=== PATIENT | female | born 1955 | race Hispanic/Latino ===

== ENCOUNTER 2017-08-05 10:44 | Inpatient (IN) | payer MEDICARE ==
[2017-08-05] VITALS (19 sets, daily range): BP systolic 120–164; BP diastolic 63–84
[~2017-08-05] VITALS: Ht 157.5 cm; Wt 78.0 kg
[~2017-08-05 10:44] MED LIST: ACET-2041 PO; AMLO10TA2 PO; ASCO500C6 PO; ASPI-1005 PO; ATOR40TA69 PO; CARV12.511 PO; CLOP75TA14 PO; FERR210T PO; FISH1CAP27 PO; FOLI0.8T22 PO; FURO80TA3 PO; INSNOV SQ; INSU100V12 SQ; IRON PO; ISON300T4 PO; NYST15OI2 TP; OLME40TA8 PO; PANT40TA25 PO; POTA10TA11 PO; PYRI100T2 PO; SUCR500T PO; VITA400C70 PO
[2017-08-05 11:15] LABS: BASOPHILS % (AUTO) 0.4 % (0.0-5.0); EOSINOPHILS % (AUTO) 1.1 % (0.0-8.0); HEMATOCRIT 36.1 % (36-48); LYMPHOCYTES % (AUTO) 8.5 % (21.0-51.0); MEAN CORPUSCULAR HEMOGLOBIN 31.3 pg (27.0-33.0); MEAN CORPUSCULAR HGB CONC 33.4 g/dL (32.0-36.0); MEAN CORPUSCULAR VOLUME 93.6 fL (79-99); MONOCYTES % (AUTO) 8.4 % (3.0-13.0); NEUTROPHILS % (AUTO) 81.6 % (40.0-77.0); PLATELET COUNT (AUTO) 380 K/uL (130-400); RED BLOOD CELL COUNT(AUTO) 3.86 MIL/uL (4.00-5.50); WHITE BLOOD COUNT (AUTO) 20.1 K/uL (4.8-10.8)
[2017-08-05] MEDS ORDERED: ONDANSETRON HCL 4 MG/2 ML VIAL ONE (11:22)
[2017-08-05 11:27] LABS: ALBUMIN 2.2 g/dL (3.5-5.0); BILIRUBIN,TOTAL 0.4 mg/dL (0.2-1.0); POTASSIUM 3.6 mmol/L (3.5-5.1); TOTAL PROTEIN, SERUM 7.1 g/dL (6.0-8.3)
[2017-08-05 11:29] LABS: CREATININE 10.7 mg/dL (0.5-1.5)
[2017-08-05] MEDS ORDERED: LEVOFLOXACIN 500 MG/D5W 100 ML 100 ML ONE (12:34)
[2017-08-05] MEDS ORDERED: SODIUM CHLORIDE 0.9% 500ML 500 ML IV ONE (12:35)
[2017-08-05] MEDS ORDERED: METRONIDAZOLE 500MG/100ML BAG 100 ML ONE (12:35)
[2017-08-05 13:25] LABS: PARTIAL THROMBOPLASTIN TIME 37.1 SEC (26.3-35.5); PROTHROMBIN TIME 10.5 SEC (9.6-11.6)
[2017-08-05] MEDS ORDERED: MEROPENEM 1 GM VIAL IVP ONE (16:45)
[2017-08-05] MEDS ORDERED: VANCOMYCIN 1.5 GM in SODIUM CHLORIDE 0.9% 250 ML IV ONE (16:45)
[2017-08-05] MEDS ORDERED: KETAMINE HCL 100 MG/ML 5ML VIAL IJ ONE (16:56)
[2017-08-05] MEDS ORDERED: MIDAZOLAM HCL 1 MG/ML 2ML VIAL ONE ×2 (16:59→18:18)
[2017-08-05] MEDS ORDERED: FENTANYL CITRATE PF 50 MCG/1 ML 5ML AMP IV ONE (17:15)
[2017-08-05] MEDS ORDERED: FENTANYL CITRATE PF 50 MCG/1 ML 2ML VIAL ONE (18:18)
[2017-08-05] MEDS ORDERED: LIDOCAINE PF 2% 5ML ABBOJECT ONE (18:18)
[2017-08-05] MEDS ORDERED: DEXAMETHASONE SOD PHOSPHATE 10MG/ML 1ML VIAL ONE (18:18)
[2017-08-05] MEDS ORDERED: PROPOFOL 10 MG/ML 20ML VIAL IV ONE (18:18)
[2017-08-05] MEDS ORDERED: SUCCINYLCHOLINE 200MG/10ML SYR ONE (18:18)
[2017-08-05] MEDS ORDERED: VANCOMYCIN PROTOCOL PER PHARMACY IV SCH (20:30)
[2017-08-05] MEDS ORDERED: HYDROMORPHONE HCL IVP PRN (20:45)
[2017-08-06] VITALS (14 sets, daily range): BP systolic 114–166; BP diastolic 49–95
[2017-08-06] MEDS ORDERED: RENAL DOSE IV PRN (03:30)
[2017-08-06 04:38] LABS: HEMATOCRIT 34.5 % (36-48); MEAN CORPUSCULAR HEMOGLOBIN 30.3 pg (27.0-33.0); MEAN CORPUSCULAR HGB CONC 32.1 g/dL (32.0-36.0); MEAN CORPUSCULAR VOLUME 94.3 fL (79-99); PLATELET COUNT (AUTO) 376 K/uL (130-400); RED BLOOD CELL COUNT(AUTO) 3.66 MIL/uL (4.00-5.50); RED CELL DISTRIBUTION WIDTH 17.3 % (11.0-15.5); WHITE BLOOD COUNT (AUTO) 19.6 K/uL (4.8-10.8)
[2017-08-06 04:56] LABS: ALBUMIN 1.9 g/dL (3.5-5.0); BILIRUBIN,TOTAL 0.4 mg/dL (0.2-1.0); PHOSPHORUS 7.8 mg/dL (2.5-4.9); POTASSIUM 4.5 mmol/L (3.5-5.1); TOTAL PROTEIN, SERUM 6.5 g/dL (6.0-8.3)
[2017-08-06 05:02] LABS: CREATININE 10.8 mg/dL (0.5-1.5)
[2017-08-06] MEDS: MEPERIDINE-PF 25 MG/ML SYG IV PRN ×3 (05:15→23:53)
[2017-08-06] MEDS ORDERED: CALC667C10 PO (08:43)
[2017-08-06] MEDS ORDERED: DEXTROSE 50%-WATER 50 ML DISP.SYRIN IV PRN (09:30)
[2017-08-06] MEDS ORDERED: GLUCAGON 1MG KIT 1 MG ML IM PRN (09:30)
[2017-08-06] MEDS: INSULIN HUMULIN R 100 UNIT/ML 3ML SQ SCH ×2 (11:30→21:00)
[2017-08-06] MEDS ORDERED: SODIUM BICARB 50MEQ 50ML VIAL ONE (13:31)
[2017-08-06] MEDS ORDERED: LIDOCAINE HCL 2% 20ML ONE (13:32)
[2017-08-06] MEDS ORDERED: MINERAL OIL/PETROLATUM,WHITE 454 GM CREAM.GM. TP PRN (15:30)
[2017-08-06] MEDS: ONDANSETRON HCL 4 MG/2 ML VIAL IVP PRN (15:54)
[2017-08-06] MEDS: FAMOTIDINE/PF 20 MG/2 ML VIAL IV SCH (15:54)
[2017-08-06 18:14] LABS: HEMATOCRIT 31.2 % (36-48)
[2017-08-06 18:22] LABS: HEMOGLOBIN A1C 5.9 % (4.0-6.0)
[2017-08-06 18:28] LABS: ALBUMIN 1.8 g/dL (3.5-5.0)
[2017-08-06] MEDS ORDERED: HEPARIN SODIUM 5000UNIT/ML 1ML VIAL IJ PRN (19:00)
[2017-08-06] MEDS ORDERED: 0.9% SODIUM CHLORIDE 250 ML IV BAG IV PRN (19:00)
[2017-08-06] MEDS ORDERED: SODIUM CHLORIDE 0.9% 1000ML 1,000 ML IV PRN (19:00)
[2017-08-06] MEDS ORDERED: ALBUMIN (HUMAN) 25% 100 ML IV PRN (19:00)
[2017-08-06 19:34] LABS: % IRON SATURATION 25.6 % (22-44)
[2017-08-06] MEDS: MEROPENEM 1 GM VIAL IVP SCH (21:36)
[2017-08-07 03:43] LABS: MEAN CORPUSCULAR HEMOGLOBIN 30.8 pg (27.0-33.0); MEAN CORPUSCULAR HGB CONC 32.7 g/dL (32.0-36.0); MEAN CORPUSCULAR VOLUME 94.1 fL (79-99); PLATELET COUNT (AUTO) 328 K/uL (130-400); RED CELL DISTRIBUTION WIDTH 17.3 % (11.0-15.5); WHITE BLOOD COUNT (AUTO) 14.5 K/uL (4.8-10.8)
[2017-08-07 03:51] LABS: CREATININE 7.2 mg/dL (0.5-1.5); POTASSIUM 3.7 mmol/L (3.5-5.1)
[2017-08-07 04:00] VITALS: BP 131/58
[2017-08-07 04:27] LABS: LYMPHOCYTES % (MANUAL) 6 % (22-44); MAN.DIFF COMMENT-IMPRESSION MANUAL DIFFERENTIAL; MONOCYTES % (MANUAL) 9 % (2-9); PLATELET MORPHOLOGY COMMENT ADEQUATE; SEGMENTED NEUTROPHILS % 85 % (40-70)
[2017-08-07] MEDS: INSULIN HUMULIN R 100 UNIT/ML 3ML SQ SCH ×4 (06:12→21:50)
[2017-08-07 08:00] VITALS: BP 113/51
[2017-08-07] MEDS ORDERED: HEPARIN SODIUM 5000UNIT/ML 1ML VIAL SQ PRN (09:00)
[2017-08-07] MEDS ORDERED: HEPARIN SODIUM 5000UNIT/ML 1ML VIAL IJ PRN (09:00)
[2017-08-07 11:00] VITALS: BP 102/67
[2017-08-07] MEDS: FAMOTIDINE/PF 20 MG/2 ML VIAL IV SCH (12:53)
[2017-08-07 16:00] VITALS: BP 108/63
[2017-08-07] MEDS: MEPERIDINE-PF 25 MG/ML SYG IV PRN (18:02)
[2017-08-07 20:00] VITALS: BP 123/56
[2017-08-07] MEDS: MEROPENEM 1 GM VIAL IVP SCH (21:44)
[2017-08-08] VITALS (7 sets, daily range): BP systolic 91–137; BP diastolic 53–68
[2017-08-08] MEDS: MEPERIDINE-PF 25 MG/ML SYG IV PRN (01:39)
[2017-08-08 04:02] LABS: HEMATOCRIT 32.2 % (36-48); MEAN CORPUSCULAR HGB CONC 33.1 g/dL (32.0-36.0); MEAN CORPUSCULAR VOLUME 93.4 fL (79-99); PLATELET COUNT (AUTO) 325 K/uL (130-400); RED BLOOD CELL COUNT(AUTO) 3.45 MIL/uL (4.00-5.50); RED CELL DISTRIBUTION WIDTH 16.7 % (11.0-15.5); WHITE BLOOD COUNT (AUTO) 13.3 K/uL (4.8-10.8)
[2017-08-08 04:05] LABS: INR 0.95 (0.85-1.15); PARTIAL THROMBOPLASTIN TIME 28.1 SEC (26.3-35.5)
[2017-08-08 04:07] LABS: CREATININE 6.4 mg/dL (0.5-1.5); POTASSIUM 3.4 mmol/L (3.5-5.1)
[2017-08-08] MEDS: INSULIN HUMULIN R 100 UNIT/ML 3ML SQ SCH ×4 (06:53→21:41)
[2017-08-08] MEDS: FAMOTIDINE/PF 20 MG/2 ML VIAL IV SCH (09:05)
[2017-08-08 10:53] LABS: HEPATITIS Bs ANTIGEN SCREEN P Negative (Negative)
[2017-08-08] MEDS ORDERED: COMPOUND IV REFRIGERATED 1 EACH IVSOLN MISC PRN (11:30)
[2017-08-08] MEDS: ONDANSETRON HCL 4 MG/2 ML VIAL IVP PRN ×2 (16:12→21:40)
[2017-08-08] MEDS: MEROPENEM 1 GM VIAL IVP SCH (21:40)
[2017-08-09] VITALS (13 sets, daily range): BP systolic 124–167; BP diastolic 61–86
[2017-08-09 04:08] LABS: HEMATOCRIT 31.5 % (36-48); MEAN CORPUSCULAR HEMOGLOBIN 31.4 pg (27.0-33.0); MEAN CORPUSCULAR HGB CONC 33.7 g/dL (32.0-36.0); MEAN CORPUSCULAR VOLUME 93.4 fL (79-99); PLATELET COUNT (AUTO) 334 K/uL (130-400); RED BLOOD CELL COUNT(AUTO) 3.37 MIL/uL (4.00-5.50); RED CELL DISTRIBUTION WIDTH 16.4 % (11.0-15.5); WHITE BLOOD COUNT (AUTO) 13.5 K/uL (4.8-10.8)
[2017-08-09 04:19] LABS: PHOSPHORUS 6.2 mg/dL (2.5-4.9); POTASSIUM 3.5 mmol/L (3.5-5.1)
[2017-08-09 04:22] LABS: CREATININE 8.3 mg/dL (0.5-1.5)
[2017-08-09] MEDS: INSULIN HUMULIN R 100 UNIT/ML 3ML SQ SCH ×3 (06:13→22:24)
[2017-08-09] MEDS ORDERED: ISOVUE-300 100 ML VIAL IV ONE (08:37)
[2017-08-09] MEDS ORDERED: LIDOCAINE HCL 1% MDV 50ML VIAL ONE (08:38)
[2017-08-09] MEDS: FAMOTIDINE/PF 20 MG/2 ML VIAL IV SCH (10:35)
[2017-08-09] MEDS: HYDROXYZINE HCL 10 MG TABLET PO PRN (12:02)
[2017-08-09] MEDS ORDERED: INSULIN DETEMIR 10ML 100 UNIT/ML 10ML SQ SCH (21:00)
[2017-08-09] MEDS: MEROPENEM 1 GM VIAL IVP SCH (22:18)
[2017-08-09] MEDS: ATORVASTATIN CALCIUM 40 MG TABLET PO SCH (22:18)
[2017-08-09] MEDS: VITAMIN E 400 UNIT CAPSULE PO SCH (22:18)
[2017-08-09] MEDS: LOSARTAN 100 MG TABLET PO SCH (22:19)
[2017-08-09] MEDS: CARVEDILOL 12.5 MG TABLET PO SCH (22:22)
[2017-08-09] MEDS: INSULIN GLARGINE 100 UNITS/ML 10 ML VIAL SQ SCH (22:25)
[2017-08-09] MEDS: MEPERIDINE-PF 25 MG/ML SYG IV PRN (22:26)
[2017-08-10 03:58] VITALS: BP 116/58
[2017-08-10 04:29] LABS: HEMATOCRIT 29.9 % (36-48); MEAN CORPUSCULAR HEMOGLOBIN 30.6 pg (27.0-33.0); MEAN CORPUSCULAR HGB CONC 32.7 g/dL (32.0-36.0); MEAN CORPUSCULAR VOLUME 93.4 fL (79-99); PLATELET COUNT (AUTO) 264 K/uL (130-400); RED CELL DISTRIBUTION WIDTH 16.6 % (11.0-15.5); WHITE BLOOD COUNT (AUTO) 12.1 K/uL (4.8-10.8)
[2017-08-10 04:47] LABS: ALBUMIN 1.8 g/dL (3.5-5.0); BILIRUBIN,TOTAL 0.4 mg/dL (0.2-1.0); CREATININE 6.1 mg/dL (0.5-1.5); POTASSIUM 3.2 mmol/L (3.5-5.1); TOTAL PROTEIN, SERUM 5.7 g/dL (6.0-8.3)
[2017-08-10] MEDS: MEPERIDINE-PF 25 MG/ML SYG IV PRN (06:34)
[2017-08-10] MEDS: INSULIN GLARGINE 100 UNITS/ML 10 ML VIAL SQ SCH ×2 (06:38→22:08)
[2017-08-10] MEDS: INSULIN HUMULIN R 100 UNIT/ML 3ML SQ SCH ×4 (06:38→22:07)
[2017-08-10 07:00] VITALS: BP 112/56
[2017-08-10] MEDS: PYRIDOXINE HCL 50 MG TABLET PO SCH (08:58)
[2017-08-10] MEDS: FOLIC ACID/VITAMIN B COMP W-C 1 MG CAPSULE PO SCH (08:59)
[2017-08-10] MEDS: ISONIAZID 300 MG TAB PO SCH (08:59)
[2017-08-10] MEDS: FAMOTIDINE/PF 20 MG/2 ML VIAL IV SCH (08:59)
[2017-08-10] MEDS: ASCORBIC ACID 500 MG TAB PO SCH (08:59)
[2017-08-10] MEDS: CALCIUM ACETATE 667 MG CAPSULE PO SCH ×3 (08:59→16:28)
[2017-08-10] MEDS: FISH OIL 1000 MG/CAP PO SCH (08:59)
[2017-08-10] MEDS: CARVEDILOL 12.5 MG TABLET PO SCH ×2 (09:00→22:06)
[2017-08-10] MEDS: VITAMIN E 400 UNIT CAPSULE PO SCH ×2 (09:00→22:05)
[2017-08-10 12:00] VITALS: BP 128/62
[2017-08-10] MEDS: HYDROXYZINE HCL 10 MG TABLET PO PRN ×2 (15:43→22:04)
[2017-08-10 16:00] VITALS: BP 125/70
[2017-08-10 19:20] VITALS: BP 120/51
[2017-08-10] MEDS: LOSARTAN 100 MG TABLET PO SCH (22:05)
[2017-08-10] MEDS: MEROPENEM 1 GM VIAL IVP SCH (22:05)
[2017-08-10] MEDS: ATORVASTATIN CALCIUM 40 MG TABLET PO SCH (22:06)
[2017-08-10 23:50] VITALS: BP 126/63
[2017-08-11] MEDS: TRAMADOL HCL 50 MG TABLET PO PRN ×2 (01:34→16:39)
[2017-08-11 03:30] VITALS: BP 138/67
[2017-08-11 06:52] LABS: BASOPHILS % (AUTO) 0.6 % (0.0-5.0); EOSINOPHILS % (AUTO) 5.2 % (0.0-8.0); HEMATOCRIT 28.8 % (36-48); LYMPHOCYTES % (AUTO) 12.9 % (21.0-51.0); MEAN CORPUSCULAR HEMOGLOBIN 31.7 pg (27.0-33.0); MEAN CORPUSCULAR HGB CONC 33.8 g/dL (32.0-36.0); MEAN CORPUSCULAR VOLUME 93.7 fL (79-99); MONOCYTES % (AUTO) 11.7 % (3.0-13.0); NEUTROPHILS % (AUTO) 69.6 % (40.0-77.0); PLATELET COUNT (AUTO) 241 K/uL (130-400); RED BLOOD CELL COUNT(AUTO) 3.07 MIL/uL (4.00-5.50); RED CELL DISTRIBUTION WIDTH 16.2 % (11.0-15.5); WHITE BLOOD COUNT (AUTO) 13.9 K/uL (4.8-10.8)
[2017-08-11 06:56] LABS: CREATININE 5.8 mg/dL (0.5-1.5); POTASSIUM 3.3 mmol/L (3.5-5.1)
[2017-08-11 07:00] VITALS: BP 109/52
[2017-08-11] MEDS: INSULIN HUMULIN R 100 UNIT/ML 3ML SQ SCH ×4 (07:30→21:00)
[2017-08-11 07:57] LABS: BILIRUBIN,TOTAL 0.4 mg/dL (0.2-1.0); TOTAL PROTEIN, SERUM 5.7 g/dL (6.0-8.3)
[2017-08-11] MEDS: CALCIUM ACETATE 667 MG CAPSULE PO SCH ×3 (08:14→16:38)
[2017-08-11] MEDS: FAMOTIDINE/PF 20 MG/2 ML VIAL IV SCH (09:00)
[2017-08-11] MEDS: CARVEDILOL 12.5 MG TABLET PO SCH ×2 (09:00→21:17)
[2017-08-11] MEDS ORDERED: FAMOTIDINE 20MG TAB 20 MG TAB ONE (09:36)
[2017-08-11] MEDS: PYRIDOXINE HCL 50 MG TABLET PO SCH (09:39)
[2017-08-11] MEDS: FISH OIL 1000 MG/CAP PO SCH (09:39)
[2017-08-11] MEDS: VITAMIN E 400 UNIT CAPSULE PO SCH ×2 (09:39→21:17)
[2017-08-11] MEDS: ISONIAZID 300 MG TAB PO SCH (09:39)
[2017-08-11] MEDS: FOLIC ACID/VITAMIN B COMP W-C 1 MG CAPSULE PO SCH (09:39)
[2017-08-11] MEDS: ASCORBIC ACID 500 MG TAB PO SCH (09:40)
[2017-08-11] MEDS: INSULIN GLARGINE 100 UNITS/ML 10 ML VIAL SQ SCH ×2 (10:39→21:00)
[2017-08-11 12:25] VITALS: BP_SYST 115; BP_SYST 118; BP_DIAS 52; BP_DIAS 62
[2017-08-11 16:00] VITALS: BP 149/65
[2017-08-11] MEDS ORDERED: AMOX-429 PO (16:18)
[2017-08-11] MEDS ORDERED: CARV6.2579 PO (16:18)
[2017-08-11] MEDS ORDERED: INSU100V12 SQ (16:22)
[2017-08-11] MEDS ORDERED: AMOXICILLIN/POTASSIUM CLAV 875-125 TABLET PO SCH (16:30)
[2017-08-11] MEDS ORDERED: LACTULOSE 20 GM/30 ML UDCUP PO SCH (16:30)
[2017-08-11] MEDS ORDERED: LACTULOSE 20 GM/30 ML UDCUP ONE ×2 (16:35→21:09)
[2017-08-11] MEDS ORDERED: PSYLLIUM SEED 1 EACH PACKET PO SCH (18:30)
[2017-08-11 19:36] VITALS: BP 143/69
[2017-08-11 21:17] VITALS: BP 143/69
[2017-08-11] MEDS: ATORVASTATIN CALCIUM 40 MG TABLET PO SCH (21:17)
[2017-08-11] MEDS: LOSARTAN 100 MG TABLET PO SCH (21:17)
[2017-08-12] MEDS ORDERED: VANCOMYCIN 1.25 GM in SODIUM CHLORIDE 0.9% 250 ML IV SCH (09:00)
== END 2017-08-11 22:52 | disposition home or self-care (01) | DRG 853 ==
LOC: EDH 10:44 → EDHIP 13:15 → 3DH 15:10
PROVIDERS: ADMIT Internal Medicine Nephrology; ATTEND Internal Medicine Nephrology
PROC: 0DTB0ZZ Resection of Ileum, Open Approach (ICD-10-PCS; principal; 2017-08-05 18:50)
PROC: 0WQF0ZZ Repair Abdominal Wall, Open Approach (ICD-10-PCS; 2017-08-05 18:50)
PROC: 02HV33Z Insertion of Infusion Device into Superior Vena Cava, Percutaneous Approach (ICD-10-PCS; 2017-08-06)
PROC: B5181ZA Fluoroscopy of Superior Vena Cava using Low Osmolar Contrast, Guidance (ICD-10-PCS; 2017-08-06)
PROC: B548ZZA Ultrasonography of Superior Vena Cava, Guidance (ICD-10-PCS; 2017-08-06)
PROC: 5A1D70Z Performance of Urinary Filtration, Intermittent, Less than 6 Hours Per Day (ICD-10-PCS; 2017-08-06)
PROC: 5A1D70Z Performance of Urinary Filtration, Intermittent, Less than 6 Hours Per Day (ICD-10-PCS; 2017-08-07)
PROC: 02H633Z Insertion of Infusion Device into Right Atrium, Percutaneous Approach (ICD-10-PCS; 2017-08-09)
PROC: B2141ZZ Fluoroscopy of Right Heart using Low Osmolar Contrast (ICD-10-PCS; 2017-08-09)
PROC: 5A1D70Z Performance of Urinary Filtration, Intermittent, Less than 6 Hours Per Day (ICD-10-PCS; 2017-08-09)
PROC: 5A1D70Z Performance of Urinary Filtration, Intermittent, Less than 6 Hours Per Day (ICD-10-PCS; 2017-08-10)
DX: A41.9 Sepsis, unspecified organism (principal); N18.6 End stage renal disease; K55.9 Vascular disorder of intestine, unspecified; K65.9 Peritonitis, unspecified; E11.21 Type 2 diabetes mellitus with diabetic nephropathy; E11.51 Type 2 diabetes mellitus with diabetic peripheral angiopathy without gangrene; K43.6 Other and unspecified ventral hernia with obstruction, without gangrene; I12.0 Hypertensive chronic kidney disease with stage 5 chronic kidney disease or end stage renal disease; E11.22 Type 2 diabetes mellitus with diabetic chronic kidney disease; Z95.5 Presence of coronary angioplasty implant and graft; I25.10 Atherosclerotic heart disease of native coronary artery without angina pectoris; Z95.1 Presence of aortocoronary bypass graft; E78.5 Hyperlipidemia, unspecified; Z99.2 Dependence on renal dialysis; H54.7 Unspecified visual loss; Z90.710 Acquired absence of both cervix and uterus; Z91.19 Patient's noncompliance with other medical treatment and regimen; Z88.8 Allergy status to other drugs, medicaments and biological substances; Z91.041 Radiographic dye allergy status; Z79.4 Long term (current) use of insulin
CPT/HCPCS: 36415; 36556; 36558; 36581; 71045; 74176; 77001; 80048; 80053; 80061; 82040; 82565; 82728; 82948; 83036; 83540; 83550; 83690; 83735; 84100; 84520; 85025; 85027; 85610; 85730; 86701; 86704; 86706; 87040; 87340; 87390; 87520; 88300; 88302; 88305; 88307; 90935; 93005; A4218; A4344; C1750; C1752; J0330; J1100; J1644; J1815; J1956; J2001; J2175; J2185; J2250; J2405; J2704; J3010; J3370; J3490; J7030; J7040; Q9967

== ENCOUNTER 2017-11-05 09:04 | Inpatient (IN) | payer MEDICARE ==
[~2017-11-05] VITALS: Ht 157.5 cm; Wt 75.9 kg
[~2017-11-05 09:04] MED LIST changes: -AMLO10TA2 PO; +AMOX-429 PO; -ASPI-1005 PO; +CALC667C10 PO; -CARV12.511 PO; +CARV6.2579 PO; -CLOP75TA14 PO; -FERR210T PO; -FURO80TA3 PO; -IRON PO; -NYST15OI2 TP; -POTA10TA11 PO; -SUCR500T PO
[2017-11-05] MEDS ORDERED: ONDANSETRON HCL MDV 20ML 2 MG/ML VIAL ONE ×2 (09:23→09:55)
[2017-11-05 09:31] LABS: BASOPHILS % (AUTO) 0.4 % (0.0-5.0); EOSINOPHILS % (AUTO) 0.7 % (0.0-8.0); HEMATOCRIT 37.4 % (36-48); LYMPHOCYTES % (AUTO) 7.6 % (21.0-51.0); MEAN CORPUSCULAR HEMOGLOBIN 31.9 pg (27.0-33.0); MEAN CORPUSCULAR HGB CONC 33.2 g/dL (32.0-36.0); MONOCYTES % (AUTO) 4.8 % (3.0-13.0); NEUTROPHILS % (AUTO) 86.5 % (40.0-77.0); PLATELET COUNT (AUTO) 266 K/uL (130-400); RED CELL DISTRIBUTION WIDTH 18.5 % (11.0-15.5); WHITE BLOOD COUNT (AUTO) 20.2 K/uL (4.8-10.8)
[2017-11-05 09:45] LABS: BILIRUBIN,TOTAL 0.5 mg/dL (0.2-1.0); POTASSIUM 5.8 mmol/L (3.5-5.1); TOTAL PROTEIN, SERUM 8.6 g/dL (6.0-8.3)
[2017-11-05 09:48] LABS: CREATININE 10.3 mg/dL (0.5-1.5)
[2017-11-05] MEDS ORDERED: SODIUM CHLORIDE 0.9% 1000ML 1,000 ML IV ONE (10:23)
[2017-11-05] MEDS ORDERED: MORPHINE SULFATE 4 MG/1ML SYG ONE (10:24)
[2017-11-05] MEDS ORDERED: PANTOPRAZOLE SODIUM 40 MG TABLET.DR PO SCH (11:27)
[2017-11-05] MEDS ORDERED: ONDANSETRON HCL 4 MG/2 ML VIAL IVP PRN (11:30)
[2017-11-05] MEDS ORDERED: LEVOFLOXACIN 250 MG/D5W 50ML 50 ML IVPB SCH (11:30)
[2017-11-05] MEDS ORDERED: ACETAMINOPHEN 325 MG TAB PO PRN ×2 (11:30)
[2017-11-05] MEDS ORDERED: CLONIDINE HCL 0.1 MG TABLET PO PRN (11:30)
[2017-11-05] MEDS: METRONIDAZOLE 500MG/100ML BAG 100 ML IVPB SCH ×2 (14:00→21:29)
[2017-11-05 14:33] VITALS: BP 151/67
[2017-11-05] MEDS ORDERED: VANCOMYCIN PROTOCOL PER PHARMACY IV SCH (15:15)
[2017-11-05] MEDS ORDERED: COMPOUND IV REFRIGERATED 1 EACH IVSOLN MISC PRN (15:30)
[2017-11-05] MEDS ORDERED: VANCOMYCIN 1.5 GM in SODIUM CHLORIDE 0.9% 250 ML IV SCH (16:00)
[2017-11-05] MEDS ORDERED: 0.9% SODIUM CHLORIDE 250 ML IV BAG IV PRN (16:15)
[2017-11-05] MEDS ORDERED: SODIUM CHLORIDE 0.9% 1000ML 1,000 ML IV PRN (16:15)
[2017-11-05] MEDS ORDERED: HEPARIN SODIUM 5000UNIT/ML 1ML VIAL IJ PRN (16:15)
[2017-11-05] MEDS ORDERED: ALBUMIN (HUMAN) 25% 100 ML IV PRN (16:15)
[2017-11-05] MEDS: FAMOTIDINE/PF 20 MG/2 ML VIAL IV SCH (18:28)
[2017-11-05 19:45] VITALS: BP 112/68
[2017-11-05] MEDS ORDERED: GLUCAGON 1MG KIT 1 MG ML IM PRN (22:45)
[2017-11-05] MEDS ORDERED: DEXTROSE 50%-WATER 50 ML DISP.SYRIN IV PRN (22:45)
[2017-11-05] MEDS ORDERED: HYDRALAZINE HCL 20 MG/ML VIAL IV PRN (22:45)
[2017-11-05 23:30] VITALS: BP 128/48
[2017-11-06] MEDS ORDERED: MORPHINE SULFATE 4 MG/1ML SYG ONE (03:44)
[2017-11-06] MEDS ORDERED: MORPHINE SULFATE 2 MG/ML 1ML SYG IVP PRN (03:45)
[2017-11-06 04:00] VITALS: BP 116/49
[2017-11-06 04:27] LABS: HEMATOCRIT 32.2 % (36-48); MEAN CORPUSCULAR HEMOGLOBIN 32.7 pg (27.0-33.0); MEAN CORPUSCULAR VOLUME 96.1 fL (79-99); PLATELET COUNT (AUTO) 225 K/uL (130-400); RED BLOOD CELL COUNT(AUTO) 3.35 MIL/uL (4.00-5.50); RED CELL DISTRIBUTION WIDTH 19.2 % (11.0-15.5)
[2017-11-06 04:32] LABS: BAND NEUTROPHILS % (MANUAL) 4 % (0-2); LYMPHOCYTES % (MANUAL) 10 % (22-44); MAN.DIFF COMMENT-IMPRESSION MANUAL DIFFERENTIAL; MONOCYTES % (MANUAL) 2 % (2-9); PLATELET MORPHOLOGY COMMENT ADEQUATE; SEGMENTED NEUTROPHILS % 84 % (40-70)
[2017-11-06 04:38] LABS: PHOSPHORUS 5.3 mg/dL (2.5-4.9); POTASSIUM 5.5 mmol/L (3.5-5.1)
[2017-11-06] MEDS: INSULIN HUMULIN R 100 UNIT/ML 3ML SQ SCH ×2 (06:13→11:30)
[2017-11-06 07:20] VITALS: BP 134/52
[2017-11-06] MEDS: METRONIDAZOLE 500MG/100ML BAG 100 ML IVPB SCH ×3 (09:10→23:20)
[2017-11-06] MEDS ORDERED: INSU100V12 SQ (10:03)
[2017-11-06] MEDS ORDERED: INSU100C6 SQ ×3 (10:03)
[2017-11-06] MEDS ORDERED: FOLI1TAB85 PO (10:03)
[2017-11-06] MEDS ORDERED: OMEG1CAP67 PO (10:03)
[2017-11-06] MEDS ORDERED: ATOR40TA71 PO (10:03)
[2017-11-06] MEDS ORDERED: ZINC50TA64 PO (10:03)
[2017-11-06] MEDS ORDERED: CALC667C10 PO (10:03)
[2017-11-06] MEDS ORDERED: OLME40TA18 PO (10:03)
[2017-11-06] MEDS ORDERED: PYRI100T2 PO (10:03)
[2017-11-06] MEDS ORDERED: CARV12.511 PO (10:03)
[2017-11-06] MEDS ORDERED: FURO80TA3 PO (10:03)
[2017-11-06] MEDS ORDERED: SEVE800T7 PO (10:03)
[2017-11-06] MEDS ORDERED: PANT40TA25 PO (10:03)
[2017-11-06] MEDS ORDERED: DIPH25CA7 PO (10:03)
[2017-11-06] MEDS ORDERED: ACET325C5 PO (10:03)
[2017-11-06] MEDS ORDERED: VITA400C70 PO (10:03)
[2017-11-06] MEDS ORDERED: ASCO500C18 PO (10:03)
[2017-11-06 11:00] VITALS: BP 149/59
[2017-11-06 15:00] VITALS: BP 116/53
[2017-11-06] MEDS: FAMOTIDINE/PF 20 MG/2 ML VIAL IV SCH (16:24)
[2017-11-06 16:55] LABS: APPEARANCE,URINE SL CLOUDY (CLEAR); BILIRUBIN,URINE NEGATIVE (NEGATIVE); COLOR,URINE YELLOW (YELLOW); GLUCOSE, URINE (UA) NEGATIVE (NEGATIVE); KETONES,URINE NEGATIVE (NEGATIVE); LEUKOCYTE ESTERASE ,URINE SMALL (NEGATIVE); NITRATE,URINE NEGATIVE (NEGATIVE); OCCULT BLOOD,URINE SMALL (NEGATIVE); PROTEIN,URINE >=300 (NEGATIVE); UROBILINOGEN,URINE 0.2 mg/dL (0.2-1.0)
[2017-11-06 17:06] LABS: BACTERIA,URINE Few /HPF (None Seen); SQUAMOUS EPITHELIAL CELL,UR Many /HPF (0-2)
[2017-11-06 17:07] LABS: COARSE GRANULAR CASTS,URINE 0-2 /LPF (None Seen)
[2017-11-06] MEDS ORDERED: DIATR MEGLU/DIATRIZOATE SODIUM 30 ML BOTTLE ONE (18:25)
[2017-11-06 20:05] VITALS: BP 132/52
[2017-11-07 00:05] VITALS: BP 127/51
[2017-11-07 03:40] VITALS: BP 129/58
[2017-11-07 04:58] LABS: HEMATOCRIT 28.7 % (36-48); MEAN CORPUSCULAR HEMOGLOBIN 32.7 pg (27.0-33.0); MEAN CORPUSCULAR HGB CONC 33.9 g/dL (32.0-36.0); MEAN CORPUSCULAR VOLUME 96.5 fL (79-99); PLATELET COUNT (AUTO) 191 K/uL (130-400); RED BLOOD CELL COUNT(AUTO) 2.97 MIL/uL (4.00-5.50); RED CELL DISTRIBUTION WIDTH 19.1 % (11.0-15.5)
[2017-11-07 05:14] LABS: BAND NEUTROPHILS % (MANUAL) 19 % (0-2); LYMPHOCYTES % (MANUAL) 21 % (22-44); MAN.DIFF COMMENT-IMPRESSION MANUAL DIFFERENTIAL; MONOCYTES % (MANUAL) 4 % (2-9); SEGMENTED NEUTROPHILS % 56 % (40-70)
[2017-11-07 05:15] LABS: ALBUMIN 2.9 g/dL (3.5-5.0); BILIRUBIN,TOTAL 0.5 mg/dL (0.2-1.0); PLATELET MORPHOLOGY COMMENT ADEQUATE; POTASSIUM 5.2 mmol/L (3.5-5.1); TOTAL PROTEIN, SERUM 6.6 g/dL (6.0-8.3)
[2017-11-07 05:17] LABS: CREATININE 8.7 mg/dL (0.5-1.5)
[2017-11-07] MEDS: INSULIN HUMULIN R 100 UNIT/ML 3ML SQ SCH ×4 (06:00→18:00)
[2017-11-07] MEDS: METRONIDAZOLE 500MG/100ML BAG 100 ML IVPB SCH ×3 (08:15→22:57)
[2017-11-07 08:57] VITALS: BP 135/49
[2017-11-07 12:00] VITALS: BP 120/47
[2017-11-07] MEDS: LEVOFLOXACIN 250 MG/D5W 50ML 50 ML IVPB SCH (13:46)
[2017-11-07] MEDS ORDERED: LACTULOSE 20 GM/30 ML UDCUP PO ONE (14:30)
[2017-11-07] MEDS ORDERED: MAGNESIUM CITRATE 296 ML SOLUTION PO ONE ×2 (14:30→17:00)
[2017-11-07] MEDS ORDERED: MAGNESIUM HYDROXIDE 30 ML/UDCUP PO ONE (14:30)
[2017-11-07 16:00] VITALS: BP 163/76
[2017-11-07] MEDS ORDERED: LACTULOSE 20 GM/30 ML UDCUP ONE (16:28)
[2017-11-07] MEDS ORDERED: MAGNESIUM HYDROXIDE 30 ML/UDCUP ONE (16:28)
[2017-11-07] MEDS: FAMOTIDINE/PF 20 MG/2 ML VIAL IV SCH (16:32)
[2017-11-07 20:20] VITALS: BP 111/61
[2017-11-07] MEDS ORDERED: 0.9% SODIUM CHLORIDE 250 ML IV BAG IV PRN (20:45)
[2017-11-07] MEDS ORDERED: ALBUMIN (HUMAN) 25% 100 ML IV PRN (20:45)
[2017-11-07] MEDS ORDERED: SODIUM CHLORIDE 0.9% 1000ML 1,000 ML IV PRN (20:45)
[2017-11-07] MEDS ORDERED: BISACODYL 10 MG SUPP.RECT RC ONE (21:00)
[2017-11-07] MEDS ORDERED: VANCOMYCIN 1.75 GM in SODIUM CHLORIDE 0.9% 250 ML IV ONE (22:15)
[2017-11-08 00:40] VITALS: BP 147/59
[2017-11-08 03:45] VITALS: BP 144/55
[2017-11-08 04:52] LABS: BASOPHILS % (AUTO) 0.4 % (0.0-5.0); EOSINOPHILS % (AUTO) 2.2 % (0.0-8.0); HEMATOCRIT 29.6 % (36-48); LYMPHOCYTES % (AUTO) 16.5 % (21.0-51.0); MEAN CORPUSCULAR HEMOGLOBIN 33.8 pg (27.0-33.0); MEAN CORPUSCULAR HGB CONC 34.8 g/dL (32.0-36.0); MONOCYTES % (AUTO) 7.6 % (3.0-13.0); NEUTROPHILS % (AUTO) 73.3 % (40.0-77.0); PLATELET COUNT (AUTO) 216 K/uL (130-400); RED BLOOD CELL COUNT(AUTO) 3.06 MIL/uL (4.00-5.50); RED CELL DISTRIBUTION WIDTH 18.7 % (11.0-15.5); WHITE BLOOD COUNT (AUTO) 10.6 K/uL (4.8-10.8)
[2017-11-08 05:15] LABS: CREATININE 6.1 mg/dL (0.5-1.5); POTASSIUM 4.4 mmol/L (3.5-5.1)
[2017-11-08] MEDS: INSULIN HUMULIN R 100 UNIT/ML 3ML SQ SCH ×4 (06:00→17:51)
[2017-11-08 08:00] VITALS: BP 142/65
[2017-11-08] MEDS: METRONIDAZOLE 500MG/100ML BAG 100 ML IVPB SCH ×3 (10:21→21:56)
[2017-11-08] MEDS: SEVELAMER HCL 800 MG TABLET PO SCH ×2 (11:22→16:52)
[2017-11-08] MEDS: CALCIUM ACETATE 667 MG CAPSULE PO SCH ×2 (11:22→16:52)
[2017-11-08 11:47] VITALS: BP 141/77
[2017-11-08 15:59] VITALS: BP 139/74
[2017-11-08] MEDS ORDERED: MAGNESIUM CITRATE 296 ML SOLUTION PO SCH (16:00)
[2017-11-08] MEDS ORDERED: LACTULOSE 20 GM/30 ML UDCUP PO SCH (16:00)
[2017-11-08] MEDS ORDERED: MAGNESIUM HYDROXIDE 30 ML/UDCUP PO SCH (16:00)
[2017-11-08] MEDS: FAMOTIDINE/PF 20 MG/2 ML VIAL IV SCH (16:53)
[2017-11-08 19:35] VITALS: BP 151/57
[2017-11-08] MEDS ORDERED: ATORVASTATIN CALCIUM 40 MG TABLET PO SCH (21:00)
[2017-11-08] MEDS: CARVEDILOL 12.5 MG TABLET PO SCH (21:56)
[2017-11-09] VITALS (7 sets, daily range): BP systolic 135–188; BP diastolic 55–86
[2017-11-09 05:34] LABS: HEMATOCRIT 27.2 % (36-48); MEAN CORPUSCULAR HEMOGLOBIN 32.4 pg (27.0-33.0); MEAN CORPUSCULAR HGB CONC 33.9 g/dL (32.0-36.0); MEAN CORPUSCULAR VOLUME 95.6 fL (79-99); PLATELET COUNT (AUTO) 222 K/uL (130-400); RED BLOOD CELL COUNT(AUTO) 2.84 MIL/uL (4.00-5.50)
[2017-11-09 05:39] LABS: BAND NEUTROPHILS % (MANUAL) 4 % (0-2); BASOPHILS % (MANUAL) 1 % (0-2); EOSINOPHILS % (MANUAL) 2 % (1-6); LYMPHOCYTES % (MANUAL) 25 % (22-44); MAN.DIFF COMMENT-IMPRESSION MANUAL DIFFERENTIAL; MONOCYTES % (MANUAL) 2 % (2-9); PLATELET MORPHOLOGY COMMENT ADEQUATE; SEGMENTED NEUTROPHILS % 66 % (40-70)
[2017-11-09 05:49] LABS: PHOSPHORUS 4.4 mg/dL (2.5-4.9); POTASSIUM 4.3 mmol/L (3.5-5.1)
[2017-11-09 05:55] LABS: CREATININE 8.4 mg/dL (0.5-1.5)
[2017-11-09] MEDS: INSULIN HUMULIN R 100 UNIT/ML 3ML SQ SCH ×4 (06:00→18:00)
[2017-11-09] MEDS: CALCIUM ACETATE 667 MG CAPSULE PO SCH ×3 (08:00→17:00)
[2017-11-09] MEDS: SEVELAMER HCL 800 MG TABLET PO SCH ×3 (08:00→17:00)
[2017-11-09] MEDS: CARVEDILOL 12.5 MG TABLET PO SCH (09:00)
[2017-11-09] MEDS ORDERED: LOSARTAN 100 MG TABLET PO SCH (09:00)
[2017-11-09] MEDS: METRONIDAZOLE 500MG/100ML BAG 100 ML IVPB SCH ×2 (10:23→14:00)
[2017-11-09] MEDS: LEVOFLOXACIN 250 MG/D5W 50ML 50 ML IVPB SCH (12:43)
[2017-11-09] MEDS: FAMOTIDINE/PF 20 MG/2 ML VIAL IV SCH (17:00)
[2017-11-12] MEDS ORDERED: VANCOMYCIN 1.25 GM in SODIUM CHLORIDE 0.9% 250 ML IV SCH (18:00)
== END 2017-11-09 19:30 | disposition home or self-care (01) | DRG 388 ==
LOC: EDH 09:04 → EDHIP 11:01 → 3DH 13:51
PROVIDERS: ADMIT Family Medicine; ATTEND Family Medicine
PROC: 5A1D70Z Performance of Urinary Filtration, Intermittent, Less than 6 Hours Per Day (ICD-10-PCS; 2017-11-05)
PROC: 0D9670Z Drainage of Stomach with Drainage Device, Via Natural or Artificial Opening (ICD-10-PCS; principal; 2017-11-06)
PROC: 5A1D70Z Performance of Urinary Filtration, Intermittent, Less than 6 Hours Per Day (ICD-10-PCS; 2017-11-07)
PROC: 5A1D70Z Performance of Urinary Filtration, Intermittent, Less than 6 Hours Per Day (ICD-10-PCS; 2017-11-09)
DX: K56.609 Unspecified intestinal obstruction, unspecified as to partial versus complete obstruction (principal); N18.6 End stage renal disease; E11.21 Type 2 diabetes mellitus with diabetic nephropathy; E11.51 Type 2 diabetes mellitus with diabetic peripheral angiopathy without gangrene; I12.0 Hypertensive chronic kidney disease with stage 5 chronic kidney disease or end stage renal disease; D64.9 Anemia, unspecified; D72.829 Elevated white blood cell count, unspecified; E11.22 Type 2 diabetes mellitus with diabetic chronic kidney disease; E78.5 Hyperlipidemia, unspecified; E87.5 Hyperkalemia; G47.33 Obstructive sleep apnea (adult) (pediatric); I25.10 Atherosclerotic heart disease of native coronary artery without angina pectoris; M81.0 Age-related osteoporosis without current pathological fracture; Z90.710 Acquired absence of both cervix and uterus; Z91.19 Patient's noncompliance with other medical treatment and regimen; Z95.1 Presence of aortocoronary bypass graft; Z95.5 Presence of coronary angioplasty implant and graft; Z99.2 Dependence on renal dialysis; Z91.041 Radiographic dye allergy status; Z90.49 Acquired absence of other specified parts of digestive tract
CPT/HCPCS: 36415; 74018; 74021; 74176; 80048; 80053; 80202; 81001; 82150; 82948; 83690; 84100; 85025; 87040; 87088; 90935; 93005; J1644; J1815; J1956; J2270; J3370; J3490; J7030; Q9963

== ENCOUNTER 2018-11-29 16:24 | Emergency (ER) | payer MEDICARE ==
[~2018-11-29 16:24] MED LIST changes: -ACET-2041 PO; -AMOX-429 PO; +ASCO500C18 PO; -ASCO500C6 PO; -ATOR40TA69 PO; +ATOR40TA71 PO; +CALC667T5 PO; +CARV12.511 PO; -CARV6.2579 PO; +DIPH25TA17 PO; -FISH1CAP27 PO; -FOLI0.8T22 PO; +FOLI1TAB85 PO; -INSNOV SQ; +INSU100C6 SQ; -ISON300T4 PO; +OMEG1CAP67 PO; +RENVELA PEG; +SEVE800T7 PO
[2018-11-29 17:12] LABS: BASOPHILS % (AUTO) 0.6 % (0.0-5.0); EOSINOPHILS % (AUTO) 1.6 % (0.0-8.0); HEMATOCRIT 31.3 % (36-48); MEAN CORPUSCULAR HEMOGLOBIN 31.3 pg (27.0-33.0); MEAN CORPUSCULAR HGB CONC 32.9 g/dL (32.0-36.0); MEAN CORPUSCULAR VOLUME 95.3 fL (79-99); MONOCYTES % (AUTO) 8.2 % (3.0-13.0); NEUTROPHILS % (AUTO) 75.6 % (40.0-77.0); PLATELET COUNT (AUTO) 218 K/uL (130-400); RED BLOOD CELL COUNT(AUTO) 3.28 MIL/uL (4.00-5.50); RED CELL DISTRIBUTION WIDTH 18.4 % (11.0-15.5); WHITE BLOOD COUNT (AUTO) 9.5 K/uL (4.8-10.8)
[2018-11-29 17:25] LABS: CREATININE 4.1 mg/dL (0.5-1.5); POTASSIUM 3.9 mmol/L (3.5-5.1)
[2018-11-29 17:26] LABS: INR 1.14 (0.85-1.15); PARTIAL THROMBOPLASTIN TIME 27.1 SEC (26.3-35.5); PROTHROMBIN TIME 11.9 SEC (9.6-11.6)
[2018-11-29 17:35] LABS: ALBUMIN 3.5 g/dL (3.5-5.0); BILIRUBIN,TOTAL 0.6 mg/dL (0.2-1.0); TOTAL PROTEIN, SERUM 7.1 g/dL (6.0-8.3)
[2018-11-29 17:39] LABS: B-TYPE NATRIURETIC PEPTIDE 3170 pg/mL (0-100)
[2018-12-01] MEDS ORDERED: PARO10TA71 PO (17:06)
[2018-12-01] MEDS ORDERED: INSU100C6 SQ ×2 (17:06)
[2018-12-01] MEDS ORDERED: CARV25TA PO (17:13)
== END 2018-11-29 20:16 | disposition home or self-care (01) ==
LOC: EDH 16:24
DX: R07.89 Other chest pain (principal); R10.9 Unspecified abdominal pain; R06.01 Orthopnea; I10 Essential (primary) hypertension; E11.9 Type 2 diabetes mellitus without complications; Z79.4 Long term (current) use of insulin; Z98.890 Other specified postprocedural states; Z91.041 Radiographic dye allergy status; Z99.2 Dependence on renal dialysis
CPT/HCPCS: 36415; 71045; 74176; 80053; 82550; 83690; 83874; 83880; 84484; 85025; 85610; 85730; 93005

== ENCOUNTER 2018-12-01 02:59 | Inpatient (IN) | payer MEDICARE | END 2018-12-05 18:00 | disposition home or self-care (01) | LOC: EDH 02:59 → EDHIP 05:54 → 3DH 16:20 | DX: I13.2 Hypertensive heart and chronic kidney disease with heart failure and with stage 5 chronic kidney disease, or end stage renal disease (principal); N18.6 End stage renal disease; I50.43 Acute on chronic combined systolic (congestive) and diastolic (congestive) heart failure; R07.9 Chest pain, unspecified; Z99.2 Dependence on renal dialysis; E11.22 Type 2 diabetes mellitus with diabetic chronic kidney disease; R09.89 Other specified symptoms and signs involving the circulatory and respiratory systems; D64.9 Anemia, unspecified; E78.5 Hyperlipidemia, unspecified ==

== ENCOUNTER → 2019-01-30 | Outpatient (CLI) | payer MEDICARE, OTHER ==
[~2019-01-30] MED LIST changes: -CALC667T5 PO; +CALC667T6 PO; -CARV12.511 PO; +CARV25TA PO; -DIPH25TA17 PO; +DOCU-116 PO; +PARO10TA71 PO; -RENVELA PEG
== END | disposition home or self-care (01) ==
LOC: SHCH 10:00
PROVIDERS: ATTEND Internal Medicine Cardiovascular Disease
DX: I08.0 Rheumatic disorders of both mitral and aortic valves (principal); I50.41 Acute combined systolic (congestive) and diastolic (congestive) heart failure
CPT/HCPCS: 93306

== ENCOUNTER → 2019-07-06 | Outpatient (CLI) | payer MEDICARE, OTHER ==
[~2019-07-06] MED LIST changes: +PYRI100T10 PO; -PYRI100T2 PO; +VITA-164 PO; -VITA400C70 PO
== END | disposition home or self-care (01) ==
LOC: SHCH 08:44
PROVIDERS: ATTEND Internal Medicine Cardiovascular Disease
DX: I50.22 Chronic systolic (congestive) heart failure (principal); I37.1 Nonrheumatic pulmonary valve insufficiency
CPT/HCPCS: 93306

== ENCOUNTER 2020-07-21 13:03 | Inpatient (IN) | payer MEDICARE, OTHER ==
[~2020-07-21] VITALS: Ht 160 cm; Wt 85.0 kg
[~2020-07-21 13:03] MED LIST changes: -PANT40TA25 PO; +PANT40TA54 PO; +PRAS10TA6 PO
[2020-07-21 13:31] LABS: ABG BASE EXCESS 1.4 mmol/L (-2.0-3.0); ABG HCO3 24.6 mmol/L (21.0-28.0); ABG OXYGEN SATURATION 94.8 % (95.0-99.0); ABG PCO2 35 mmHg (32-45)
[2020-07-21] MEDS ORDERED: ACETAMINOPHEN WITH CODEINE 1 TAB TAB ONE (13:35)
[2020-07-21 13:42] LABS: BASOPHILS % (AUTO) 0.2 % (0.0-5.0); EOSINOPHILS % (AUTO) 0.1 % (0.0-8.0); HEMATOCRIT 42.3 % (36-48); LYMPHOCYTES % (AUTO) 11.6 % (21.0-51.0); MEAN CORPUSCULAR HEMOGLOBIN 33.5 pg (27.0-33.0); MEAN CORPUSCULAR HGB CONC 32.9 g/dL (32.0-36.0); MEAN CORPUSCULAR VOLUME 101.9 fL (79-99); MONOCYTES % (AUTO) 8.5 % (3.0-13.0); PLATELET COUNT (AUTO) 187 K/uL (130-400); RED BLOOD CELL COUNT(AUTO) 4.15 MIL/uL (4.00-5.50); RED CELL DISTRIBUTION WIDTH 13.6 % (11.0-15.5); WHITE BLOOD COUNT (AUTO) 8.3 K/uL (4.8-10.8)
[2020-07-21 13:44] LABS: CREATININE 7.2 mg/dL (0.5-1.5); POTASSIUM 4.5 mmol/L (3.5-5.1)
[2020-07-21 13:49] LABS: ALBUMIN 4.1 g/dL (3.5-5.0); BILIRUBIN,TOTAL 0.6 mg/dL (0.2-1.0); TOTAL PROTEIN, SERUM 8.3 g/dL (6.0-8.3)
[2020-07-21 13:50] LABS: INR 1.05 (0.85-1.15); PROTHROMBIN TIME 11.4 SEC (9.6-11.6)
[2020-07-21 13:52] LABS: PARTIAL THROMBOPLASTIN TIME 27.3 SEC (26.3-35.5)
[2020-07-21 14:12] LABS: B-TYPE NATRIURETIC PEPTIDE 301 pg/mL (0-100)
[2020-07-21] MEDS ORDERED: CEFTRIAXONE 1G VIAL ONE (14:18)
[2020-07-21] MEDS ORDERED: ALBUTEROL INHALER 90MCG/INH IH ONE (14:18)
[2020-07-21] MEDS ORDERED: AZITHROMYCIN 250 MG TABLET PO ONE (14:19)
[2020-07-21] MEDS ORDERED: VANCOMYCIN PROTOCOL PER PHARMACY IV SCH (15:15)
[2020-07-21] MEDS ORDERED: ACETAMINOPHEN 325 MG TAB PO PRN (15:15)
[2020-07-21 15:44] LABS: HEMOGLOBIN A1C 6.9 % (4.0-6.0)
[2020-07-21 16:15] LABS: CRP QUANTITATIVE 92.1 mg/L (0.00-9.0)
[2020-07-21] MEDS ORDERED: ROPINIROLE HCL 0.25 MG TABLET PO SCH (17:30)
[2020-07-21] MEDS ORDERED: VANCOMYCIN 1G 1.25 GM in 0.9% NACL 250ML 250 ML IV SCH (17:46)
[2020-07-21] MEDS ORDERED: COMPOUND IV REFRIGERATED 1 EACH IVSOLN MISC PRN (18:00)
[2020-07-21] MEDS ORDERED: ACETAMINOPHEN 325 MG TAB ONE (18:15)
[2020-07-21] MEDS ORDERED: GUAIFENESIN-DM 200/20 MG 10 ML PO PRN (20:45)
[2020-07-21] MEDS: ATORVASTATIN 20 MG TABLET PO SCH (21:00)
[2020-07-21] MEDS: DOXYCYCLINE HYCLATE 100 MG TABLET PO SCH (21:00)
[2020-07-21] MEDS ORDERED: GUAIFENESIN-DM 200/20 MG 10 ML ONE (21:19)
[2020-07-21] MEDS ORDERED: ATORVASTATIN 20 MG TABLET ONE (21:20)
[2020-07-21] MEDS ORDERED: DOXYCYCLINE HYCLATE 100 MG TABLET PO ONE (21:20)
[2020-07-21 22:35] VITALS: BP 140/74
[2020-07-22] VITALS (8 sets, daily range): BP systolic 110–156; BP diastolic 53–77
[2020-07-22 05:49] LABS: BASOPHILS % (AUTO) 0.4 % (0.0-5.0); EOSINOPHILS % (AUTO) 0.1 % (0.0-8.0); HEMATOCRIT 37.8 % (36-48); LYMPHOCYTES % (AUTO) 19.2 % (21.0-51.0); MEAN CORPUSCULAR HEMOGLOBIN 32.4 pg (27.0-33.0); MEAN CORPUSCULAR HGB CONC 31.5 g/dL (32.0-36.0); MONOCYTES % (AUTO) 10.6 % (3.0-13.0); NEUTROPHILS % (AUTO) 69.3 % (40.0-77.0); PLATELET COUNT (AUTO) 173 K/uL (130-400); RED BLOOD CELL COUNT(AUTO) 3.67 MIL/uL (4.00-5.50); RED CELL DISTRIBUTION WIDTH 13.9 % (11.0-15.5); WHITE BLOOD COUNT (AUTO) 7.1 K/uL (4.8-10.8)
[2020-07-22 06:11] LABS: ALBUMIN 3.3 g/dL (3.5-5.0); BILIRUBIN,TOTAL 0.5 mg/dL (0.2-1.0); CRP QUANTITATIVE 134.6 mg/L (0.00-9.0); POTASSIUM 5.9 mmol/L (3.5-5.1); TOTAL PROTEIN, SERUM 7.6 g/dL (6.0-8.3)
[2020-07-22 06:16] LABS: CREATININE 9.2 mg/dL (0.5-1.5)
[2020-07-22] MEDS: INSULIN HUMULIN R 100 UNIT/ML 3ML SQ SCH ×4 (06:52→20:55)
[2020-07-22] MEDS: SEVELAMER HCL 800 MG TABLET PO SCH ×3 (07:41→16:13)
[2020-07-22] MEDS: PANTOPRAZOLE 40 MG TAB DR PO SCH (07:41)
[2020-07-22] MEDS: PAROXETINE HCL 20 MG TABLET PO SCH (07:41)
[2020-07-22] MEDS: DOXYCYCLINE HYCLATE 100 MG TABLET PO SCH ×2 (07:41→20:55)
[2020-07-22] MEDS: Vitamin B Complex/Vit C/Folic Acid PO SCH (07:41)
[2020-07-22] MEDS ORDERED: KAYEXALATE 15GM/60ML PO SCH (08:00)
[2020-07-22] MEDS ORDERED: INSULIN GLARGINE 100 UNITS/ML 10 ML VIAL SQ SCH (09:00)
[2020-07-22] MEDS ORDERED: CEFTRIAXONE 1G VIAL IVP SCH (09:00)
[2020-07-22] MEDS ORDERED: GUAIFENESIN-DM 200/20 MG 10 ML PO PRN (10:00)
[2020-07-22] MEDS: CEFEPIME HCL 1 GM VIAL IVP SCH (16:13)
[2020-07-22] MEDS: ATORVASTATIN 20 MG TABLET PO SCH (20:55)
[2020-07-23 04:22] VITALS: BP 128/61
[2020-07-23 04:46] LABS: BASOPHILS % (AUTO) 0.3 % (0.0-5.0); EOSINOPHILS % (AUTO) 0.7 % (0.0-8.0); HEMATOCRIT 35.6 % (36-48); LYMPHOCYTES % (AUTO) 24.7 % (21.0-51.0); MEAN CORPUSCULAR HEMOGLOBIN 32.6 pg (27.0-33.0); MEAN CORPUSCULAR VOLUME 101.7 fL (79-99); MONOCYTES % (AUTO) 9.8 % (3.0-13.0); NEUTROPHILS % (AUTO) 63.8 % (40.0-77.0); PLATELET COUNT (AUTO) 173 K/uL (130-400); RED CELL DISTRIBUTION WIDTH 13.7 % (11.0-15.5); WHITE BLOOD COUNT (AUTO) 7.4 K/uL (4.8-10.8)
[2020-07-23 04:56] LABS: MAGNESIUM 1.8 mg/dL (1.80-2.40); PHOSPHORUS 6.6 mg/dL (2.5-4.9); POTASSIUM 5.1 mmol/L (3.5-5.1)
[2020-07-23 05:31] LABS: CREATININE 10.7 mg/dL (0.5-1.5)
[2020-07-23] MEDS: INSULIN HUMULIN R 100 UNIT/ML 3ML SQ SCH ×4 (05:53→21:04)
[2020-07-23 07:38] VITALS: BP 139/75
[2020-07-23] MEDS: SEVELAMER HCL 800 MG TABLET PO SCH ×3 (08:32→16:20)
[2020-07-23] MEDS: PANTOPRAZOLE 40 MG TAB DR PO SCH (08:33)
[2020-07-23 12:15] VITALS: BP 129/61
[2020-07-23] MEDS: PAROXETINE HCL 20 MG TABLET PO SCH (12:52)
[2020-07-23] MEDS: CEFEPIME HCL 1 GM VIAL IVP SCH (12:52)
[2020-07-23] MEDS: DOXYCYCLINE HYCLATE 100 MG TABLET PO SCH ×2 (12:52→21:00)
[2020-07-23] MEDS: Vitamin B Complex/Vit C/Folic Acid PO SCH (12:52)
[2020-07-23 16:21] VITALS: BP 117/56
[2020-07-23 20:35] VITALS: BP 111/50
[2020-07-23] MEDS: ATORVASTATIN 20 MG TABLET PO SCH (21:00)
[2020-07-23 23:55] VITALS: BP 114/55
[2020-07-24 04:03] VITALS: BP 115/57
[2020-07-24] MEDS: INSULIN HUMULIN R 100 UNIT/ML 3ML SQ SCH ×4 (05:57→21:00)
[2020-07-24 06:33] LABS: MEAN CORPUSCULAR HEMOGLOBIN 32.2 pg (27.0-33.0); MEAN CORPUSCULAR HGB CONC 31.9 g/dL (32.0-36.0); MEAN CORPUSCULAR VOLUME 101.1 fL (79-99); PLATELET COUNT (AUTO) 159 K/uL (130-400); RED BLOOD CELL COUNT(AUTO) 3.66 MIL/uL (4.00-5.50); RED CELL DISTRIBUTION WIDTH 13.7 % (11.0-15.5); WHITE BLOOD COUNT (AUTO) 8.4 K/uL (4.8-10.8)
[2020-07-24 06:50] LABS: ALBUMIN 3.2 g/dL (3.5-5.0); BILIRUBIN,TOTAL 0.6 mg/dL (0.2-1.0); POTASSIUM 4.6 mmol/L (3.5-5.1); TOTAL PROTEIN, SERUM 7.7 g/dL (6.0-8.3)
[2020-07-24 06:56] LABS: CREATININE 8.7 mg/dL (0.5-1.5)
[2020-07-24 07:48] VITALS: BP 122/59
[2020-07-24 08:31] LABS: EOSINOPHILS % (MANUAL) 6 % (1-6); LYMPHOCYTES % (MANUAL) 3 % (22-44); MONOCYTES % (MANUAL) 15 % (2-9); PLATELET MORPHOLOGY COMMENT ADEQUATE; REACTIVE LYMPHOCYTES 1 % (0-0); SEGMENTED NEUTROPHILS % 75 % (40-70)
[2020-07-24] MEDS: SEVELAMER HCL 800 MG TABLET PO SCH ×3 (12:00→17:26)
[2020-07-24 12:06] VITALS: BP 121/56
[2020-07-24] MEDS: DOXYCYCLINE HYCLATE 100 MG TABLET PO SCH ×2 (12:37→21:33)
[2020-07-24] MEDS: PANTOPRAZOLE 40 MG TAB DR PO SCH (12:37)
[2020-07-24] MEDS: Vitamin B Complex/Vit C/Folic Acid PO SCH (12:37)
[2020-07-24] MEDS: PAROXETINE HCL 20 MG TABLET PO SCH (12:38)
[2020-07-24] MEDS: CEFEPIME HCL 1 GM VIAL IVP SCH (12:57)
[2020-07-24] MEDS: VANCOMYCIN 1G 1.25 GM in 0.9% NACL 250ML 250 ML IV SCH (15:21)
[2020-07-24] MEDS ORDERED: INSULIN GLARGINE 100 UNITS/ML 10 ML VIAL SQ ONE (16:00)
[2020-07-24 16:42] VITALS: BP 179/62
[2020-07-24] MEDS ORDERED: LOSARTAN 50 MG TABLET PO SCH (18:30)
[2020-07-24] MEDS ORDERED: HYDRALAZINE 20MG/ML VIAL IV PRN (18:30)
[2020-07-24 20:00] VITALS: BP 128/61
[2020-07-24] MEDS: ATORVASTATIN 20 MG TABLET PO SCH (21:33)
[2020-07-24 23:44] VITALS: BP 154/68
[2020-07-25 03:30] VITALS: BP 140/67
[2020-07-25 03:57] LABS: BASOPHILS % (AUTO) 0.3 % (0.0-5.0); EOSINOPHILS % (AUTO) 2.2 % (0.0-8.0); HEMATOCRIT 36.7 % (36-48); LYMPHOCYTES % (AUTO) 16.2 % (21.0-51.0); MEAN CORPUSCULAR HEMOGLOBIN 33.1 pg (27.0-33.0); MEAN CORPUSCULAR HGB CONC 32.7 g/dL (32.0-36.0); MEAN CORPUSCULAR VOLUME 101.4 fL (79-99); MONOCYTES % (AUTO) 11.3 % (3.0-13.0); NEUTROPHILS % (AUTO) 69.6 % (40.0-77.0); PLATELET COUNT (AUTO) 189 K/uL (130-400); RED BLOOD CELL COUNT(AUTO) 3.62 MIL/uL (4.00-5.50); RED CELL DISTRIBUTION WIDTH 13.4 % (11.0-15.5); WHITE BLOOD COUNT (AUTO) 6.7 K/uL (4.8-10.8)
[2020-07-25 04:19] LABS: PHOSPHORUS 7.4 mg/dL (2.5-4.9); POTASSIUM 4.4 mmol/L (3.5-5.1)
[2020-07-25 04:29] LABS: CREATININE 10.4 mg/dL (0.5-1.5)
[2020-07-25] MEDS: INSULIN HUMULIN R 100 UNIT/ML 3ML SQ SCH ×3 (05:11→16:30)
[2020-07-25 08:00] VITALS: BP 129/61
[2020-07-25] MEDS: PANTOPRAZOLE 40 MG TAB DR PO SCH (08:54)
[2020-07-25] MEDS: Vitamin B Complex/Vit C/Folic Acid PO SCH (08:54)
[2020-07-25] MEDS: PAROXETINE HCL 20 MG TABLET PO SCH (08:54)
[2020-07-25] MEDS: DOXYCYCLINE HYCLATE 100 MG TABLET PO SCH (08:54)
[2020-07-25] MEDS: SEVELAMER HCL 800 MG TABLET PO SCH ×3 (08:54→16:57)
[2020-07-25 09:10] LABS: HEPATITIS A ANTIBODY IGM Negative (Negative); HEPATITIS B CORE IGM Negative (Negative); HEPATITIS Bs ANTIGEN SCREEN P Negative (Negative)
[2020-07-25 12:00] VITALS: BP 152/73
[2020-07-25] MEDS ORDERED: ONDANSETRON 4MG INJ IVP PRN (12:45)
[2020-07-25] MEDS: CEFEPIME HCL 1 GM VIAL IVP SCH (13:26)
[2020-07-25] MEDS: VANCOMYCIN 1G 1.25 GM in 0.9% NACL 250ML 250 ML IV SCH ×2 (15:00→16:57)
[2020-07-25 15:50] VITALS: BP 135/60
[2020-07-25] MEDS ORDERED: LEVO500T90 PO (17:49)
[2021-05-16] MEDS ORDERED: ROPI0.5T7 PO (10:14)
[2021-05-16] MEDS ORDERED: ICOS1CAP PO (10:14)
[2021-05-16] MEDS ORDERED: VITAMIN D PO (10:14)
[2021-05-16] MEDS ORDERED: UBID100C10 PO (10:14)
[2021-05-16] MEDS ORDERED: LOSA50TA64 PO (10:14)
[2021-05-16] MEDS ORDERED: GABA-529 PO (10:14)
[2021-05-16] MEDS ORDERED: LEFL10TA19 PO (10:14)
[2021-05-16] MEDS ORDERED: DOXY25TA55 PO (10:15)
== END 2020-07-25 18:55 | disposition home or self-care (01) | DRG 177 ==
LOC: EDH 13:03 → EDHIP 15:06 → OBSVTOIN 15:06 → 2AH 22:35 → 3AH 07-24 05:06
PROVIDERS: ADMIT Internal Medicine; ATTEND Internal Medicine
PROC: 5A1D70Z Performance of Urinary Filtration, Intermittent, Less than 6 Hours Per Day (ICD-10-PCS; principal; 2020-07-23)
DX: J15.6 Pneumonia due to other Gram-negative bacteria (principal); J96.01 Acute respiratory failure with hypoxia; N18.6 End stage renal disease; I12.0 Hypertensive chronic kidney disease with stage 5 chronic kidney disease or end stage renal disease; E87.5 Hyperkalemia; D64.9 Anemia, unspecified; E66.9 Obesity, unspecified; E11.22 Type 2 diabetes mellitus with diabetic chronic kidney disease; E78.5 Hyperlipidemia, unspecified; I25.10 Atherosclerotic heart disease of native coronary artery without angina pectoris; Y95 Nosocomial condition; Z20.822 Contact with and (suspected) exposure to COVID-19; Z82.49 Family history of ischemic heart disease and other diseases of the circulatory system; Z83.3 Family history of diabetes mellitus; Z90.710 Acquired absence of both cervix and uterus; Z95.1 Presence of aortocoronary bypass graft; Z95.5 Presence of coronary angioplasty implant and graft; Z99.2 Dependence on renal dialysis; Z90.49 Acquired absence of other specified parts of digestive tract; Z91.041 Radiographic dye allergy status; Z68.33 Body mass index [BMI] 33.0-33.9, adult
CPT/HCPCS: 36415; 71045; 71250; 80048; 80053; 80074; 80202; 82550; 82728; 82803; 82948; 83036; 83605; 83615; 83735; 83880; 84100; 84145; 84443; 84484; 85025; 85378; 85610; 85730; 86140; 86738; 87040; 87426; 87804; 87880; 90935; 93005; 93970; 99291; G0378; J0692; J0696; J1815; J2405; J3370; J7050; U0003

== ENCOUNTER → 2020-11-02 | Outpatient (CLI) | payer MEDICARE, OTHER ==
[~2020-11-02] MED LIST changes: +LEVO500T89 PO; -PRAS10TA6 PO
== END | disposition home or self-care (01) ==
LOC: SHCH 13:06
PROVIDERS: ATTEND Internal Medicine Cardiovascular Disease
DX: I95.9 Hypotension, unspecified (principal)
CPT/HCPCS: 93306; 93356

== ENCOUNTER 2021-05-17 05:46 | Day surgery (SDC) | payer MEDICARE, OTHER ==
[2021-05-15 08:45] LABS: BASOPHILS % (AUTO) 0.6 % (0.0-5.0); HEMATOCRIT 28.7 % (36-48); MEAN CORPUSCULAR HEMOGLOBIN 33.8 pg (27.0-33.0); MEAN CORPUSCULAR HGB CONC 31.7 g/dL (32.0-36.0); MEAN CORPUSCULAR VOLUME 106.7 fL (79-99); MONOCYTES % (AUTO) 8.9 % (3.0-13.0); NEUTROPHILS % (AUTO) 68.5 % (40.0-77.0); PLATELET COUNT (AUTO) 256 K/uL (130-400); RED BLOOD CELL COUNT(AUTO) 2.69 MIL/uL (4.00-5.50); RED CELL DISTRIBUTION WIDTH 13.9 % (11.0-15.5); WHITE BLOOD COUNT (AUTO) 10.5 K/uL (4.8-10.8)
[2021-05-15 09:06] LABS: POTASSIUM 4.6 mmol/L (3.5-5.1)
[2021-05-15 09:07] LABS: PROTHROMBIN TIME 10.9 SEC (9.6-11.6)
[2021-05-15 09:09] LABS: PARTIAL THROMBOPLASTIN TIME 26.9 SEC (26.3-35.5)
[2021-05-16 09:13] VITALS: BP 173/72
[2021-05-17] VITALS (13 sets, daily range): BP systolic 116–154; BP diastolic 48–74
[~2021-05-17] VITALS: Ht 157.5 cm; Wt 84.5 kg
[~2021-05-17 05:46] MED LIST changes: -CALC667C10 PO; -CALC667T6 PO; -CARV25TA PO; -DOCU-116 PO; +DOXY25TA55 PO; +GABA-529 PO; +ICOS1CAP PO; +LEFL10TA19 PO; -LEVO500T89 PO; +LOSA50TA64 PO; -OLME40TA8 PO; -OMEG1CAP67 PO; +ROPI0.5T7 PO; +UBID100C10 PO; +VITAMIN D PO
[2021-05-17] MEDS ORDERED: 0.9%NACL 1000ML 1,000 ML IV ONE (06:38)
[2021-05-17] MEDS ORDERED: SOLU-MEDROL 125MG VIAL ONE (07:11)
[2021-05-17] MEDS ORDERED: NITROGLYCERIN 2 MG VIAL IV ONE (07:11)
[2021-05-17] MEDS ORDERED: FENTANYL CITRATE PF 50 MCG/1 ML 2ML VIAL ONE (07:12)
[2021-05-17] MEDS ORDERED: IOHEXOL 350 MG/ML 100ML INFUS..BTL IV ONE ×3 (07:12→08:58)
[2021-05-17] MEDS ORDERED: MIDAZOLAM HCL 1 MG/ML 2ML VIAL ONE (07:12)
[2021-05-17] MEDS ORDERED: IOHEXOL-350 50ML VIAL IV ONE (07:12)
[2021-05-17] MEDS ORDERED: LIDOCAINE HCL 400MG/20ML VIAL ONE (07:12)
[2021-05-17] MEDS ORDERED: NITROGLYCERIN 4.1 GM SPRAY TL ONE (08:22)
[2021-05-17] MEDS ORDERED: BIVALIRUDIN 250 MG/VIAL IV ONE (08:33)
[2021-05-17] MEDS ORDERED: CLOPIDOGREL 300MG TAB ONE (08:38)
[2021-05-17] MEDS ORDERED: ASPIRIN 325MG EC TAB PO ONE (08:38)
[2021-05-17] MEDS ORDERED: HEPARIN 10,000 UNIT/10ML (1,000 UNIT/ML) VIAL ONE (08:38)
[2021-05-17] MEDS ORDERED: HEPARIN 25,000 UNITS/250ML D5W 0 ML IV ONE (08:40)
[2021-05-17] MEDS ORDERED: ONDANSETRON 4MG INJ ONE (08:56)
[2021-05-17] MEDS ORDERED: INSULIN HUMULIN R 100 UNIT/ML 3ML SQ SCH (11:30)
[2021-05-18] MEDS ORDERED: CLOPIDOGREL 75MG TAB PO SCH (09:00)
== END 2021-05-17 18:01 | disposition home or self-care (01) ==
LOC: DAH 05:46
PROVIDERS: ATTEND Internal Medicine Cardiovascular Disease
DX: I25.119 Atherosclerotic heart disease of native coronary artery with unspecified angina pectoris (principal); I27.20 Pulmonary hypertension, unspecified; E11.22 Type 2 diabetes mellitus with diabetic chronic kidney disease; I13.2 Hypertensive heart and chronic kidney disease with heart failure and with stage 5 chronic kidney disease, or end stage renal disease; N18.6 End stage renal disease; I50.42 Chronic combined systolic (congestive) and diastolic (congestive) heart failure; I44.7 Left bundle-branch block, unspecified; G47.33 Obstructive sleep apnea (adult) (pediatric); E78.00 Pure hypercholesterolemia, unspecified; F32.9 Major depressive disorder, single episode, unspecified; F41.9 Anxiety disorder, unspecified; E66.3 Overweight; Z99.2 Dependence on renal dialysis; Z98.890 Other specified postprocedural states; Z98.891 History of uterine scar from previous surgery; Z90.49 Acquired absence of other specified parts of digestive tract; Z90.710 Acquired absence of both cervix and uterus; Z83.3 Family history of diabetes mellitus; Z82.49 Family history of ischemic heart disease and other diseases of the circulatory system; Z68.33 Body mass index [BMI] 33.0-33.9, adult; Z79.4 Long term (current) use of insulin; Z79.899 Other long term (current) drug therapy; Z79.01 Long term (current) use of anticoagulants
CPT/HCPCS: 36415; 71045; 80048; 82948 ×2; 85025; 85610; 85730; 93005 ×2; 93461; A4215; A4216; A4221; A4222; A4223 ×3; A4606; A4663; C1725; C1760; C1769 ×3; C1874 ×3; C1887 ×3; C1894 ×3; C9600; C9601; C9604; J1644 ×3; J1815; J2250; J2405; J2930; J3010; J3490 ×2; J7030; Q9965 ×3; Q9967 ×4; 99156; 99157; J0583

== ENCOUNTER → 2023-02-25 | Outpatient (CLI) | payer MEDICARE, OTHER ==
[~2023-02-25] MED LIST changes: +ROPI0.5T37 PO; -ROPI0.5T7 PO; -VITA-164 PO; +VITA-348 PO
== END | disposition home or self-care (01) ==
LOC: WHH 13:08
PROVIDERS: ATTEND Nurse Practitioner Family
DX: T87.89 Other complications of amputation stump (principal); E11.22 Type 2 diabetes mellitus with diabetic chronic kidney disease; I13.2 Hypertensive heart and chronic kidney disease with heart failure and with stage 5 chronic kidney disease, or end stage renal disease; N18.6 End stage renal disease; I50.42 Chronic combined systolic (congestive) and diastolic (congestive) heart failure; I25.10 Atherosclerotic heart disease of native coronary artery without angina pectoris; E11.40 Type 2 diabetes mellitus with diabetic neuropathy, unspecified; E11.51 Type 2 diabetes mellitus with diabetic peripheral angiopathy without gangrene; E78.00 Pure hypercholesterolemia, unspecified; G47.33 Obstructive sleep apnea (adult) (pediatric); E66.9 Obesity, unspecified; F41.9 Anxiety disorder, unspecified; Z68.32 Body mass index [BMI] 32.0-32.9, adult; Z90.49 Acquired absence of other specified parts of digestive tract; Z90.710 Acquired absence of both cervix and uterus; Z79.01 Long term (current) use of anticoagulants; Z79.4 Long term (current) use of insulin; Z79.899 Other long term (current) drug therapy; Y92.89 Other specified places as the place of occurrence of the external cause; Y83.5 Amputation of limb(s) as the cause of abnormal reaction of the patient, or of later complication, without mention of misadventure at the time of the procedure
CPT/HCPCS: 11042; A4450

== ENCOUNTER → 2023-03-18 | Outpatient (CLI) | payer MEDICARE, OTHER ==
[~2023-03-18] MED LIST changes: +LIDOCAINE HCL 4% LTA SOL 4 ML VIAL TP ONE
[2023-03-18 13:42] LABS: HEMOGLOBIN A1C 5.8 % (4.0-6.0)
== END | disposition home or self-care (01) ==
LOC: WHH 09:17
PROVIDERS: ATTEND Nurse Practitioner Family
DX: T87.89 Other complications of amputation stump (principal); E11.22 Type 2 diabetes mellitus with diabetic chronic kidney disease; I13.2 Hypertensive heart and chronic kidney disease with heart failure and with stage 5 chronic kidney disease, or end stage renal disease; N18.6 End stage renal disease; I50.42 Chronic combined systolic (congestive) and diastolic (congestive) heart failure; I25.10 Atherosclerotic heart disease of native coronary artery without angina pectoris; E11.40 Type 2 diabetes mellitus with diabetic neuropathy, unspecified; E11.51 Type 2 diabetes mellitus with diabetic peripheral angiopathy without gangrene; E78.00 Pure hypercholesterolemia, unspecified; G47.33 Obstructive sleep apnea (adult) (pediatric); E66.9 Obesity, unspecified; F41.9 Anxiety disorder, unspecified; Z68.32 Body mass index [BMI] 32.0-32.9, adult; Z90.49 Acquired absence of other specified parts of digestive tract; Z90.710 Acquired absence of both cervix and uterus; Z79.01 Long term (current) use of anticoagulants; Z79.4 Long term (current) use of insulin; Z79.899 Other long term (current) drug therapy
CPT/HCPCS: 11042; 71045; 83036; 85651; 86140; 36415; 11045; 93005; A6260

== ENCOUNTER → 2023-03-25 | Outpatient (CLI) | payer MEDICARE, OTHER ==
[~2023-03-25] MED LIST changes: -LIDOCAINE HCL 4% LTA SOL 4 ML VIAL TP ONE
== END | disposition home or self-care (01) ==
LOC: WHH 10:57
PROVIDERS: ATTEND Nurse Practitioner Family
DX: T87.89 Other complications of amputation stump (principal); E11.22 Type 2 diabetes mellitus with diabetic chronic kidney disease; I13.2 Hypertensive heart and chronic kidney disease with heart failure and with stage 5 chronic kidney disease, or end stage renal disease; N18.6 End stage renal disease; I50.42 Chronic combined systolic (congestive) and diastolic (congestive) heart failure; I25.10 Atherosclerotic heart disease of native coronary artery without angina pectoris; E11.40 Type 2 diabetes mellitus with diabetic neuropathy, unspecified; E11.51 Type 2 diabetes mellitus with diabetic peripheral angiopathy without gangrene; E78.00 Pure hypercholesterolemia, unspecified; G47.33 Obstructive sleep apnea (adult) (pediatric); E66.9 Obesity, unspecified; F41.9 Anxiety disorder, unspecified; Z68.32 Body mass index [BMI] 32.0-32.9, adult; Z90.49 Acquired absence of other specified parts of digestive tract; Z95.1 Presence of aortocoronary bypass graft; Z90.710 Acquired absence of both cervix and uterus; Z79.01 Long term (current) use of anticoagulants; Z79.4 Long term (current) use of insulin; Z79.899 Other long term (current) drug therapy
CPT/HCPCS: 11042

== ENCOUNTER → 2023-04-01 | Outpatient (CLI) | payer MEDICARE, OTHER ==
[~2023-04-01] MED LIST changes: +LIDOCAINE HCL 4% LTA SOL 4 ML VIAL TP ONE
== END | disposition home or self-care (01) ==
LOC: WHH 10:17
PROVIDERS: ATTEND Nurse Practitioner Family
DX: T87.89 Other complications of amputation stump (principal); E11.22 Type 2 diabetes mellitus with diabetic chronic kidney disease; I13.2 Hypertensive heart and chronic kidney disease with heart failure and with stage 5 chronic kidney disease, or end stage renal disease; N18.6 End stage renal disease; I50.42 Chronic combined systolic (congestive) and diastolic (congestive) heart failure; I25.10 Atherosclerotic heart disease of native coronary artery without angina pectoris; E11.40 Type 2 diabetes mellitus with diabetic neuropathy, unspecified; E11.51 Type 2 diabetes mellitus with diabetic peripheral angiopathy without gangrene; E78.00 Pure hypercholesterolemia, unspecified; G47.33 Obstructive sleep apnea (adult) (pediatric); E66.9 Obesity, unspecified; F41.9 Anxiety disorder, unspecified; Z68.32 Body mass index [BMI] 32.0-32.9, adult; Z90.49 Acquired absence of other specified parts of digestive tract; Z95.1 Presence of aortocoronary bypass graft; Z90.710 Acquired absence of both cervix and uterus; Z79.01 Long term (current) use of anticoagulants; Z79.4 Long term (current) use of insulin; Z79.899 Other long term (current) drug therapy; Y83.5 Amputation of limb(s) as the cause of abnormal reaction of the patient, or of later complication, without mention of misadventure at the time of the procedure
CPT/HCPCS: 11042

== ENCOUNTER → 2023-04-05 | Outpatient (CLI) | payer MEDICARE, OTHER ==
[~2023-04-05] MED LIST changes: -LIDOCAINE HCL 4% LTA SOL 4 ML VIAL TP ONE
== END | disposition home or self-care (01) ==
LOC: RAH 11:15
PROVIDERS: ATTEND Family Medicine
DX: I08.0 Rheumatic disorders of both mitral and aortic valves (principal); L98.499 Non-pressure chronic ulcer of skin of other sites with unspecified severity
CPT/HCPCS: 93306

== ENCOUNTER → 2023-04-08 | Outpatient (CLI) | payer MEDICARE, OTHER ==
[~2023-04-08] MED LIST changes: +LIDOCAINE HCL 4% LTA SOL 4 ML VIAL TP ONE
== END | disposition home or self-care (01) ==
LOC: WHH 09:45
PROVIDERS: ATTEND Nurse Practitioner Family
DX: T87.89 Other complications of amputation stump (principal); E11.622 Type 2 diabetes mellitus with other skin ulcer; L98.492 Non-pressure chronic ulcer of skin of other sites with fat layer exposed; E11.22 Type 2 diabetes mellitus with diabetic chronic kidney disease; I13.2 Hypertensive heart and chronic kidney disease with heart failure and with stage 5 chronic kidney disease, or end stage renal disease; N18.6 End stage renal disease; I50.42 Chronic combined systolic (congestive) and diastolic (congestive) heart failure; I25.10 Atherosclerotic heart disease of native coronary artery without angina pectoris; E11.40 Type 2 diabetes mellitus with diabetic neuropathy, unspecified; E11.51 Type 2 diabetes mellitus with diabetic peripheral angiopathy without gangrene; E78.00 Pure hypercholesterolemia, unspecified; G47.33 Obstructive sleep apnea (adult) (pediatric); E66.9 Obesity, unspecified; F41.9 Anxiety disorder, unspecified; Z68.32 Body mass index [BMI] 32.0-32.9, adult; Z90.49 Acquired absence of other specified parts of digestive tract; Z95.1 Presence of aortocoronary bypass graft; Z90.710 Acquired absence of both cervix and uterus; Z79.4 Long term (current) use of insulin; Z79.899 Other long term (current) drug therapy; Y83.8 Other surgical procedures as the cause of abnormal reaction of the patient, or of later complication, without mention of misadventure at the time of the procedure
CPT/HCPCS: 11042; A6209; A4450

== ENCOUNTER → 2023-04-22 | Outpatient (CLI) | payer MEDICARE, OTHER ==
[~2023-04-22] MED LIST changes: +SILVER NITRATE APPLICATOR 1 SWAB TP ONE
== END | disposition home or self-care (01) ==
LOC: WHH 09:17
PROVIDERS: ATTEND Nurse Practitioner Family
DX: T87.89 Other complications of amputation stump (principal); E11.622 Type 2 diabetes mellitus with other skin ulcer; L97.822 Non-pressure chronic ulcer of other part of left lower leg with fat layer exposed; L98.491 Non-pressure chronic ulcer of skin of other sites limited to breakdown of skin; E11.22 Type 2 diabetes mellitus with diabetic chronic kidney disease; I13.2 Hypertensive heart and chronic kidney disease with heart failure and with stage 5 chronic kidney disease, or end stage renal disease; N18.6 End stage renal disease; I50.42 Chronic combined systolic (congestive) and diastolic (congestive) heart failure; I25.10 Atherosclerotic heart disease of native coronary artery without angina pectoris; E11.40 Type 2 diabetes mellitus with diabetic neuropathy, unspecified; E11.51 Type 2 diabetes mellitus with diabetic peripheral angiopathy without gangrene; E78.00 Pure hypercholesterolemia, unspecified; G47.33 Obstructive sleep apnea (adult) (pediatric); E66.9 Obesity, unspecified; F41.9 Anxiety disorder, unspecified; Z68.32 Body mass index [BMI] 32.0-32.9, adult; Z90.49 Acquired absence of other specified parts of digestive tract; Z95.1 Presence of aortocoronary bypass graft; Z90.710 Acquired absence of both cervix and uterus; Z99.2 Dependence on renal dialysis; Z79.4 Long term (current) use of insulin; Z79.899 Other long term (current) drug therapy; Y83.5 Amputation of limb(s) as the cause of abnormal reaction of the patient, or of later complication, without mention of misadventure at the time of the procedure
CPT/HCPCS: 11042; A6248; A6197; A4450; G0463

== ENCOUNTER → 2023-04-29 | Outpatient (CLI) | payer MEDICARE, OTHER ==
[~2023-04-29] MED LIST changes: -SILVER NITRATE APPLICATOR 1 SWAB TP ONE
== END | disposition home or self-care (01) ==
LOC: WHH 09:33
PROVIDERS: ATTEND Nurse Practitioner Family
DX: T87.89 Other complications of amputation stump (principal); E11.622 Type 2 diabetes mellitus with other skin ulcer; L97.822 Non-pressure chronic ulcer of other part of left lower leg with fat layer exposed; L98.491 Non-pressure chronic ulcer of skin of other sites limited to breakdown of skin; E11.22 Type 2 diabetes mellitus with diabetic chronic kidney disease; I13.2 Hypertensive heart and chronic kidney disease with heart failure and with stage 5 chronic kidney disease, or end stage renal disease; N18.6 End stage renal disease; I50.42 Chronic combined systolic (congestive) and diastolic (congestive) heart failure; I25.10 Atherosclerotic heart disease of native coronary artery without angina pectoris; E11.40 Type 2 diabetes mellitus with diabetic neuropathy, unspecified; E11.51 Type 2 diabetes mellitus with diabetic peripheral angiopathy without gangrene; E78.00 Pure hypercholesterolemia, unspecified; G47.33 Obstructive sleep apnea (adult) (pediatric); E66.9 Obesity, unspecified; F41.9 Anxiety disorder, unspecified; Z68.32 Body mass index [BMI] 32.0-32.9, adult; Z90.49 Acquired absence of other specified parts of digestive tract; Z95.1 Presence of aortocoronary bypass graft; Z90.710 Acquired absence of both cervix and uterus; Z99.2 Dependence on renal dialysis; Z79.4 Long term (current) use of insulin; Z79.899 Other long term (current) drug therapy; Y83.5 Amputation of limb(s) as the cause of abnormal reaction of the patient, or of later complication, without mention of misadventure at the time of the procedure
CPT/HCPCS: G0463

== ENCOUNTER → 2023-05-06 | Outpatient (CLI) | payer MEDICARE, OTHER ==
[~2023-05-06] MED LIST changes: -LIDOCAINE HCL 4% LTA SOL 4 ML VIAL TP ONE
== END | disposition home or self-care (01) ==
LOC: WHH 09:45
PROVIDERS: ATTEND Nurse Practitioner Family
DX: T87.89 Other complications of amputation stump (principal); E11.622 Type 2 diabetes mellitus with other skin ulcer; L97.822 Non-pressure chronic ulcer of other part of left lower leg with fat layer exposed; L98.491 Non-pressure chronic ulcer of skin of other sites limited to breakdown of skin; E11.22 Type 2 diabetes mellitus with diabetic chronic kidney disease; I13.2 Hypertensive heart and chronic kidney disease with heart failure and with stage 5 chronic kidney disease, or end stage renal disease; N18.6 End stage renal disease; I50.42 Chronic combined systolic (congestive) and diastolic (congestive) heart failure; I25.10 Atherosclerotic heart disease of native coronary artery without angina pectoris; E11.40 Type 2 diabetes mellitus with diabetic neuropathy, unspecified; E11.51 Type 2 diabetes mellitus with diabetic peripheral angiopathy without gangrene; E78.00 Pure hypercholesterolemia, unspecified; G47.33 Obstructive sleep apnea (adult) (pediatric); E66.9 Obesity, unspecified; F41.9 Anxiety disorder, unspecified; Z68.32 Body mass index [BMI] 32.0-32.9, adult; Z90.49 Acquired absence of other specified parts of digestive tract; Z95.1 Presence of aortocoronary bypass graft; Z90.710 Acquired absence of both cervix and uterus; Z99.2 Dependence on renal dialysis; Z79.4 Long term (current) use of insulin; Z79.899 Other long term (current) drug therapy; Y83.5 Amputation of limb(s) as the cause of abnormal reaction of the patient, or of later complication, without mention of misadventure at the time of the procedure
CPT/HCPCS: G0463

== ENCOUNTER → 2023-05-13 | Outpatient (CLI) | payer MEDICARE, OTHER | END | disposition home or self-care (01) | LOC: WHH 09:35 | PROVIDERS: ATTEND Nurse Practitioner Family | DX: T87.89 Other complications of amputation stump (principal); E11.622 Type 2 diabetes mellitus with other skin ulcer; L97.822 Non-pressure chronic ulcer of other part of left lower leg with fat layer exposed; L98.491 Non-pressure chronic ulcer of skin of other sites limited to breakdown of skin; E11.22 Type 2 diabetes mellitus with diabetic chronic kidney disease; I13.2 Hypertensive heart and chronic kidney disease with heart failure and with stage 5 chronic kidney disease, or end stage renal disease; N18.6 End stage renal disease; I50.42 Chronic combined systolic (congestive) and diastolic (congestive) heart failure; I25.10 Atherosclerotic heart disease of native coronary artery without angina pectoris; E11.40 Type 2 diabetes mellitus with diabetic neuropathy, unspecified; E11.51 Type 2 diabetes mellitus with diabetic peripheral angiopathy without gangrene; E78.00 Pure hypercholesterolemia, unspecified; G47.33 Obstructive sleep apnea (adult) (pediatric); E66.9 Obesity, unspecified; F41.9 Anxiety disorder, unspecified; Z68.32 Body mass index [BMI] 32.0-32.9, adult; Z90.49 Acquired absence of other specified parts of digestive tract; Z95.1 Presence of aortocoronary bypass graft; Z90.710 Acquired absence of both cervix and uterus; Z99.2 Dependence on renal dialysis; Z79.4 Long term (current) use of insulin; Z79.899 Other long term (current) drug therapy; Y83.5 Amputation of limb(s) as the cause of abnormal reaction of the patient, or of later complication, without mention of misadventure at the time of the procedure | CPT/HCPCS: G0463 ==

== ENCOUNTER → 2023-06-11 | Outpatient (CLI) | payer MEDICARE, OTHER | END | disposition home or self-care (01) | LOC: WHH 10:49 | PROVIDERS: ATTEND Nurse Practitioner Family | DX: S90.111A Contusion of right great toe without damage to nail, initial encounter (principal); M79.671 Pain in right foot; M79.89 Other specified soft tissue disorders; E11.22 Type 2 diabetes mellitus with diabetic chronic kidney disease; I13.2 Hypertensive heart and chronic kidney disease with heart failure and with stage 5 chronic kidney disease, or end stage renal disease; N18.6 End stage renal disease; I50.42 Chronic combined systolic (congestive) and diastolic (congestive) heart failure; I25.10 Atherosclerotic heart disease of native coronary artery without angina pectoris; E11.40 Type 2 diabetes mellitus with diabetic neuropathy, unspecified; E11.51 Type 2 diabetes mellitus with diabetic peripheral angiopathy without gangrene; E78.00 Pure hypercholesterolemia, unspecified; G47.33 Obstructive sleep apnea (adult) (pediatric); E66.9 Obesity, unspecified; F41.9 Anxiety disorder, unspecified; Z68.32 Body mass index [BMI] 32.0-32.9, adult; Z90.49 Acquired absence of other specified parts of digestive tract; Z95.1 Presence of aortocoronary bypass graft; Z90.710 Acquired absence of both cervix and uterus; Z99.2 Dependence on renal dialysis; Z79.4 Long term (current) use of insulin; Z79.899 Other long term (current) drug therapy; W22.8XXA Striking against or struck by other objects, initial encounter; Y93.89 Activity, other specified; Y92.89 Other specified places as the place of occurrence of the external cause; Y99.8 Other external cause status | CPT/HCPCS: 73630; G0463 ==

== ENCOUNTER → 2023-06-18 | Outpatient (CLI) | payer MEDICARE, OTHER | END | disposition home or self-care (01) | LOC: WHH 09:45 | PROVIDERS: ATTEND Nurse Practitioner Family | DX: S92.421A Displaced fracture of distal phalanx of right great toe, initial encounter for closed fracture (principal); M79.671 Pain in right foot; M79.89 Other specified soft tissue disorders; E11.22 Type 2 diabetes mellitus with diabetic chronic kidney disease; I13.2 Hypertensive heart and chronic kidney disease with heart failure and with stage 5 chronic kidney disease, or end stage renal disease; N18.6 End stage renal disease; I50.42 Chronic combined systolic (congestive) and diastolic (congestive) heart failure; I25.10 Atherosclerotic heart disease of native coronary artery without angina pectoris; E11.40 Type 2 diabetes mellitus with diabetic neuropathy, unspecified; E11.51 Type 2 diabetes mellitus with diabetic peripheral angiopathy without gangrene; E78.00 Pure hypercholesterolemia, unspecified; G47.33 Obstructive sleep apnea (adult) (pediatric); E66.9 Obesity, unspecified; F41.9 Anxiety disorder, unspecified; Z68.32 Body mass index [BMI] 32.0-32.9, adult; Z90.49 Acquired absence of other specified parts of digestive tract; Z95.1 Presence of aortocoronary bypass graft; Z90.710 Acquired absence of both cervix and uterus; Z99.2 Dependence on renal dialysis; Z79.4 Long term (current) use of insulin; Z79.899 Other long term (current) drug therapy; W22.8XXA Striking against or struck by other objects, initial encounter; Y93.89 Activity, other specified; Y92.89 Other specified places as the place of occurrence of the external cause; Y99.8 Other external cause status | CPT/HCPCS: G0463 ==